=== PATIENT | female | born 1990 | race American Indian/Alaskan Native ===

== ENCOUNTER 2017-09-23 09:03 | Inpatient (IN) | payer OTHER ==
[2017-09-23] MEDS ORDERED: LACTATED RINGERS 1,000 ML IV ONE (13:18)
[2017-09-23] MEDS ORDERED: POLYCILLIN/NS 2 GM/100 ML 2 GM/100 ML BAG IV ONE (13:20)
[2017-09-23] MEDS ORDERED: XYLOCAINE 2% INFILTRATI ONE (13:20)
[2017-09-23] MEDS ORDERED: NARCAN 0.4 MG/1 ML IV PRN (13:20)
[2017-09-23] MEDS ORDERED: BRETHINE IVP PRN (13:20)
[2017-09-23] MEDS ORDERED: BRETHINE SUB-Q PRN (13:20)
[2017-09-23] MEDS ORDERED: MINERAL OIL PO PRN (13:20)
[2017-09-23] MEDS ORDERED: ePHEDrine SULFATE IV PRN ×2 (13:20→17:33)
[2017-09-23] MEDS ORDERED: SUBLIMAZE IV PRN (13:20)
[2017-09-23] MEDS ORDERED: STADOL IV PRN (13:20)
[2017-09-23] MEDS ORDERED: PITOCin/NS 30 UNIT/500ML 30 UNITS/500 ML BAG IV SCH ×2 (13:30→14:00)
[2017-09-23] MEDS ORDERED: PITOCin/NS 20 UNIT/1000ML DRIP 20 UNITS/1,000 ML BAG IV SCH ×2 (14:00→21:23)
--- NOTE | 2017-09-23 14:15 | Ultrasound Report ---
ULTRASOUND BIOPHYSICAL PROFILE: History: Nonreactive stress test, well being Technique: Transabdominal ultrasound with Doppler interrogation. 2 - breathing movements 0 - movements 2 - posture and tone 2 - Qualitative amniotic fluid volume 6 - TOTAL SCORE OF POSSIBLE 8 Heart Rate (bpm) 131
--- NOTE | 2017-09-23 14:19 | Ultrasound Report ---
OB ULTRASOUND History no care, nonreactive stress test, well being. Technique: Transabdominal ultrasound with Doppler interrogation. Gestation: Single Position: Cephalic Amniotic Fluid: Normal SIMONE = 8.9 cm Placenta: Posterior, fundal Placental Grade: 2 Heart Rate: 136 BPM Cervical length: Obscured NEUROANATOMY VISUALIZED: ANATOMY VISUALIZED: Stomach Kidneys Bladder Diaphragm 4 Chamber Heart Heart 3 Vessel Cord SPINE VISUALIZED: Longitudinal Transverse The following are not demonstrated due to maternal body habitus or lie: Neuroanatomy, umbilical cord insertion, cervix BPD: 9.2 cm = 37 w 2 d HC: 33.2 cm = 37 w 6 d AC: 33.3 cm = 37 w 2 d FL: 7.5 cm = 38 w 2 d HC/AC Ratio: 1.0 Cephalic Index: 82.4 Estimated Weight: 3-48 grams Clinical age = 39 w 4 d EDC: 09/26/17 US Gest. Age = 37 w 5 d EDC: 10/09/17 IMPRESSION: Viable, single intrauterine as described.
[2017-09-23] MEDS: LACTATED RINGERS 1,000 ML IV SCH ×3 (14:30→17:20)
[2017-09-23 14:54] LABS: Hematocrit 36.8 % (30.3-42.9); Hemoglobin 11.6 gm/dl (10.1-14.3); Mean Corpuscular HGB Conc 32 % (30-34); Mean Corpuscular Volume 75 fl (79-97); Platelet Count 181 K/mm3 (140-440); Red Blood Count 4.89 M/mm3 (3.65-5.03); Red Cell Distribution Width 14.4 % (13.2-15.2)
[2017-09-23 15:01] LABS: Bilirubin,Urine NEG (Negative); Blood,Urine NEG (Negative); Color,Urine Straw (Yellow); Protein,Urine <15 mg/dL mg/dL (Negative); Urobilinogen,Urine < 2.0 mg/dL (<2.0); WBC,Urine < 1.0 /HPF (0.0-6.0)
[2017-09-23 15:02] LABS: Mean Corpuscular Hemoglobin 24 pg (28-32)
[2017-09-23 15:09] LABS: Amphetamine Screen,Urine PRESUMPTIVE NEGATIVE; Benzodiazepines Screen,Urine PRESUMPTIVE NEGATIVE; Cannabinoid Screen,Urine PRESUMPTIVE NEGATIVE; Cocaine Screen,Urine PRESUMPTIVE NEGATIVE; Methadone Screen,Urine PRESUMPTIVE NEGATIVE; Opiate Screen,Urine PRESUMPTIVE NEGATIVE
[2017-09-23 15:21] LABS: Hepatitis C Virus Antibody Non-Reactive (NonReactive); Rubella IgG Antibody Immune (Immune)
[2017-09-23 15:58] LABS: Basophils % (Manual) 0 % (0.0-1.8); Total Cells Counted 100
[2017-09-23 16:00] LABS: Anisocytosis 2+; Platelet Estimate Consistent w Auto
[2017-09-23] MEDS ORDERED: AMPICILLIN/NS 1 GM/50 ML 1 GM/50 ML BAG IV SCH (17:23)
[2017-09-23] MEDS ORDERED: NARCAN 2 MG/2 ML IV PRN (17:33)
--- NOTE | 2017-09-23 17:34 | Anesthesia Consultation ---
Anesthesia Consult and Med Hx Date of service: 09/23/17 - Airway Anesthetic Teeth Evaluation: Good ROM Head & Neck: Adequate Mental/Hyoid Distance: Adequate Mallampati Class: Class II Intubation Access Assessment: Probably Good - Pre-Operative Health Status ASA Pre-Surgery Classification: ASA2 Proposed Anesthetic Plan: Epidural, Spinal - Pulmonary Hx Asthma: No COPD: No Hx Pneumonia: No - Cardiovascular System Hx Hypertension: No - Central Nervous System Hx Seizures: No Hx Psychiatric Problems: No - Endocrine Hx Renal Disease: No Hx End Stage Renal Disease: No Hx Hypothyroidism: No Hx Hyperthyroidism: No - Hematic Hx Anemia: No Hx Sickle Cell Disease: No - Other Systems Hx Alcohol Use: No
[2017-09-23] MEDS ORDERED: fentaNYL-BUPIV 2 MCG/ML-0.125% 200 MCG/100 ML BAG EPIDURAL SCH (18:00)
--- NOTE | 2017-09-23 18:09 | History and Physical Report ---
History of Present Illness Date of examination: 09/23/17 Date of admission: 09/23/17 09:04 Chief complaint: contractions History of present illness: Pt is a 27 year old primigravida KANE: 09/28/17 at 39w2d who presents with regular painful contractions since 1 am this morning. She denies leakage of fluid or vaginal bleeding. She has had care in [place] that she reports was uncomplicated. She is now comfortable with epidural. Past History Past Medical History: no pertinent history Past Surgical History: no surgical history Family/Genetic History: diabetes, hypertension, stroke, cancer Social history: no significant social history - Obstetrical History Expected Date of Delivery: 09/28/17 Actual Gestation: 39 Week(s) 2 Day(s) : 1 Medications and Allergies Allergies Allergy/AdvReac Type Severity Reaction Status Date / Time ibuprofen Allergy Swelling Verified 09/23/17 09:05 Home Medications Medication Instructions Recorded Confirmed Last Taken Type Ferrous Sulfate 325 mg PO DAILY 09/23/17 09/23/17 09/22/17 09:00 History 1 Vit-Fe Fumar-FA [ 1 tab PO QDAY 09/23/17 09/23/17 09/22/17 09: 00 History Vitamin] 1 Active Meds: Active Medications Butorphanol Tartrate (Stadol) 2 mg IV Q2H PRN PRN Reason: Pain , Severe (7-10) Ephedrine Sulfate (Ephedrine Sulfate) 10 mg IV Q2M PRN PRN Reason: Hypotension Ephedrine Sulfate (Ephedrine Sulfate) 10 mg IV Q2M PRN PRN Reason: Hypotension Fentanyl (Sublimaze) 100 mcg IV Q2H PRN PRN Reason: Labor Pain Ampicillin Sodium (Ampicillin/Ns 1 Gm/50 Ml) 1 gm in 50 mls @ 100 mls/hr IV Q4HR KIMO; Protocol Lactated Ringer's (Lactated Ringers) 1,000 mls @ 125 mls/hr IV DIRECT KIMO Last Admin: 09/23/17 15:54 Dose: 125 mls/hr Oxytocin/Sodium Chloride (Pitocin/Ns 20 Unit/1000ml Drip) 20 units in 1,000 mls @ 125 mls/hr IV DIRECT KIMO Oxytocin/Sodium Chloride (Pitocin/Ns 30 Unit/500ml) 30 units in 500 mls @ 1 mls /hr IV TITR KIMO; Protocol Oxytocin/Sodium Chloride (Pitocin/Ns 30 Unit/500ml) 30 units in 500 mls @ 4 mls /hr IV TITR KIMO; Protocol Last Admin: 09/23/17 15:40 Dose: 4 ml/hr, 4 mls/hr Fentanyl/Bupivacaine/Sodium Chlor (Fentanyl-Bupiv 2 Mcg/Ml-0.125%) 200 mcg in 100 mls @ 12 mls/hr EPIDURAL TITR KIMO; Protocol Mineral Oil (Mineral Oil) 30 ml PO QHS PRN PRN Reason: Constipation Naloxone HCl (Narcan 0.4 Mg/1 Ml) 0.1 mg IV Q2MIN PRN PRN Reason: Res Rate </= 8 or 02 SAT < 92% Naloxone HCl (Narcan 2 Mg/2 Ml) 0.2 mg IV Q5M PRN PRN Reason: Respiratory sedation Terbutaline Sulfate (Brethine) 0.25 mg SUB-Q ONCE PRN PRN Reason: Hyperstimulation/Hypertonicity Terbutaline Sulfate (Brethine) 0.25 mg IVP ONCE PRN PRN Reason: Hyperstimulation/Hypertonicity Review of Systems All systems: negative - Vital Signs Vital signs: Vital Signs Pulse Pulse Ox 80 100 09/23/17 09:23 09/23/17 09:23 Temp Pulse Resp BP Pulse Ox 97.5 F L 80 16 118/71 100 09/23/17 14:13 09/23/17 14:14 09/23/17 14:13 09/23/17 14:14 09/23/17 13:55 - Physical Exam Breasts: Positive: deferred Cardiovascular: Regular rate Lungs: Positive: Clear to auscultation Abdomen: Positive: soft (gravid ) Uterus: Positive: enlarged (gravid ) Extremities: Positive: normal - Obstetrical FHR: category 2 Uterine Contraction Monitor Mode: External Cervical Dilatation: 10 Cervical Effacement Percentage: 100 station: +1 Uterine Contraction Pattern: Regular Uterine Tone Measurement Phase: Resting Uterine Contraction Intensity: Strong/Firm Results Result Diagrams: 09/23/17 13:30 Abnormal lab results 09/23/17 Range/Units 13:30 WBC 12.6 H (4.5-11.0) K/mm3 MCV 75 L (79-97) fl MCH 24 L (28-32) pg Seg Neuts % (Manual) 74.0 H (40.0-70.0) % Lymphocytes % (Manual) 9.0 L (13.4-35.0) % Monocytes % (Manual) 14.0 H (0.0-7.3) % Seg Neutrophils # Man 9.3 H (1.8-7.7) K/mm3 Lymphocytes # (Manual) 1.1 L (1.2-5.4) K/mm3 Monocytes # (Manual) 1.8 H (0.0-0.8) K/mm3 All other labs normal. Assessment and Plan A: IUP at 39w2d Second Stage Labor GBS unknown Unassigned patient P: Admit to labor and delivery. No care labs. Ampicillin for GBS unknown status Routine intrapartum care.
--- NOTE | 2017-09-23 19:39 | Procedure Note ---
OB Delivery Note - Delivery Date of Delivery: 09/23/17 Surgeon: LESLEE PACK Estimated blood loss: other (400 mL) - Vaginal Delivery presentation: vertex Delivery position: OA Intrapartum events: no care, PROM->1hr before delivery, meconium, mult.variable deceleratio Delivery induction: none Delivery augmentation: rupture of membranes, pitocin Delivery monitor: external FHT, external uterine Route of delivery: Delivery placenta: spontaneous Delivery cord: 3 umbilical vessels Episiotomy: none Delivery laceration: 2nd degree, other (bilateral periurethral ) Delivery repair: vicryl Anesthesia: epidural Delivery comments: Pt progressed to complete/complete/+2 and pushed to deliver a viable female over intact perienum under epidural anesthesia via . Head delivered in KAYLEE position, quickly followed by shoulders and body. placed on maternal abdomen and bulb suctioned. Cord clamped and cut and handed to nurse in attendance. Placenta delivered spontaneously (3VC, intact). Vagina and perineum explored. Bilateral periurethral and second degree perineal lacerations repaired in a standard fashion. EBL 400 mL. - A at 1 minute: 8 at 5 minutes: 9 Gender: Female (3264g (7lb 3oz) @ 1910 pm)
[2017-09-23] MEDS ORDERED: DERMOPLAST TP PRN (21:23)
[2017-09-23] MEDS ORDERED: ZOFRAN IV PRN (21:23)
[2017-09-23] MEDS ORDERED: MILK OF MAGNESIA PO PRN (21:23)
[2017-09-23] MEDS ORDERED: TUCKS PAD TP PRN (21:23)
[2017-09-23] MEDS ORDERED: PHENERGAN PO PRN (21:23)
[2017-09-23] MEDS ORDERED: TYLENOL PO PRN (21:23)
[2017-09-23] MEDS ORDERED: BENADRYL PO PRN (21:23)
[2017-09-23] MEDS ORDERED: DULCOLAX PR PRN (21:23)
[2017-09-23] MEDS ORDERED: SODIUM CHLORIDE FLUSH SYRINGE 10 ML IV PRN (21:23)
[2017-09-23] MEDS ORDERED: PHENERGAN PR PRN (21:23)
[2017-09-23] MEDS ORDERED: MOTRIN PO SCH (21:23)
[2017-09-23] MEDS ORDERED: LANSINOH TP PRN ×2 (21:23)
[2017-09-23] MEDS: FEOSOL PO SCH (22:43)
[2017-09-23] MEDS: NORCO 5/325 PO PRN (22:44)
[2017-09-24] MEDS: COLACE PO SCH ×3 (01:05→21:28)
[2017-09-24 07:55] LABS: Hematocrit 30.9 % (30.3-42.9)
--- NOTE | 2017-09-24 08:47 | Progress Note ---
Assessment and Plan - Patient Problems (1) Vaginal delivery Current Visit: Yes Status: Acute Plan to address problem: patient doing well discharge home once is discharged Subjective - Subjective Date of service: 09/24/17 Interval history: Patient without complaints. Pain well controlled Patient reports: appetite normal, voiding normally, pain well controlled : doing well Objective - Vital Signs Latest vital signs: Vital Signs Temp Pulse Resp BP BP Pulse Ox 09/24/17 07:54 98.5 F 72 18 91/47 99 09/24/17 04:10 98.2 F 80 18 109/55 09/23/17 21:05 99.2 F 77 18 121/70 09/23/17 14:14 80 118/71 09/23/17 14:13 97.5 F L 16 09/23/17 13:55 78 100 09/23/17 13:54 78 91 09/23/17 13:50 78 99 09/23/17 13:47 71 85 09/23/17 13:45 78 100 09/23/17 13:40 82 99 09/23/17 13:35 78 100 09/23/17 13:30 79 100 09/23/17 13:25 77 100 09/23/17 13:21 78 115/70 09/23/17 13:20 81 100 09/23/17 09:26 79 113/70 09/23/17 09:24 99.1 F 79 20 100 09/23/17 09:23 80 100 Intake and Output 09/23/17 09/24/17 09/24/17 22:59 06:59 14:59 Intake Total 604.167 240 Output Total 1150 1400 Balance -545.833 -1160 Intake: IV 604.167 Lactated Ringers 1,000 ml 354.167 @ 125 mls/hr IV DIRECT KIMO Rx#:[id number] Left Forearm 250 Oral 240 Output: Urine 1150 1400 Indwelling Catheter 350 Void 800 1400 Other: Total, Intake Amount 240 Total, Output Amount 800 600 Estimated Blood Loss 400 - Exam Uterus: Present: normal - Labs Labs: Abnormal lab results 09/23/17 09/24/17 Range/Units 13:30 07:36 WBC 12.6 H (4.5-11.0) K/mm3 Hgb 10.0 L (10.1-14.3) gm/dl MCV 75 L (79-97) fl MCH 24 L (28-32) pg Seg Neuts % (Manual) 74.0 H (40.0-70.0) % Lymphocytes % (Manual) 9.0 L (13.4-35.0) % Monocytes % (Manual) 14.0 H (0.0-7.3) % Seg Neutrophils # Man 9.3 H (1.8-7.7) K/mm3 Lymphocytes # (Manual) 1.1 L (1.2-5.4) K/mm3 Monocytes # (Manual) 1.8 H (0.0-0.8) K/mm3
--- NOTE | 2017-09-24 08:50 | Discharge Summary ---
Providers - Providers Date of Admission: 09/23/17 09:04 Date of discharge: 09/25/17 Attending physician: LESLEE PACK 09/23/17 21:23 Consult to Telecom Billing Analyst [CONS] Routine Reason For Exam: assistance with , SNS Primary care physician: LESLEE PACK Hospitalization Reason for admission: active labor Delivery: Discharge diagnosis: IUP at term delivered baby: female Hospital course: Patient without care in the [place] presents in active labor. Had a . uncomplicated Condition at discharge: Good Disposition: DC-01 TO HOME OR SELFCARE - Discharge Diagnoses (1) Vaginal delivery Status: Acute Plan - Discharge Medications Prescriptions: HYDROcodone/APAP 5-325 [[place] 5/325] 1 each PO Q6HR PRN #30 tablet PRN Reason: Pain - Provider Discharge Summary Activity: no sex for 6 weeks, no heavy lifting 4 weeks, no strenuous exercise Diet: routine Instructions: routine Additional instructions: [] Smoking cessation referral if applicable(refer to patient education folder for contact #) [] Refer to [facility] [employer] [facility] Booklet Call your doctor immediately for: * Fever > 100.5 * Heavy vaginal bleeding ( >1 pad per hour) * Severe persistent headache * Shortness of breath * Reddened, hot, painful area to leg or breast * followup in 4 weeks [facility] * [address] [facility] * natalie steinberg * [phone] - Follow up plan
[2017-09-24] MEDS: FEOSOL PO SCH ×2 (10:48→21:28)
[2017-09-24] MEDS ORDERED: M-M-R II VACCINE SUB-Q ONE (19:40)
[2017-09-24] MEDS: NORCO 5/325 PO PRN (20:38)
[2017-09-25] MEDS ORDERED: BOOSTRIX IM ONE (06:00)
[2017-09-25] MEDS: NORCO 5/325 PO PRN (10:09)
[2017-09-25] MEDS: COLACE PO SCH (10:09)
[2017-09-25] MEDS: FEOSOL PO SCH (10:09)
[2017-09-25 10:30] VITALS: BP 113/69
== END 2017-09-25 15:45 | disposition home or self-care (01) | DRG 775 ==
LOC: EDBD 09:03 → TRG 09:03 → LD 09:04 → OB 20:57
PROVIDERS: ADMIT Obstetrics & Gynecology; ATTEND Obstetrics & Gynecology
PROC: 10E0XZZ Delivery of Products of Conception, External Approach (ICD-10-PCS; principal; 2017-09-23)
PROC: 0KQM0ZZ Repair Perineum Muscle, Open Approach (ICD-10-PCS; 2017-09-23)
PROC: 3E0234Z Introduction of Serum, Toxoid and Vaccine into Muscle, Percutaneous Approach (ICD-10-PCS; 2017-09-23)
PROC: 3E0R3BZ Introduction of Anesthetic Agent into Spinal Canal, Percutaneous Approach (ICD-10-PCS; 2017-09-23)
PROC: 00HU33Z Insertion of Infusion Device into Spinal Canal, Percutaneous Approach (ICD-10-PCS; 2017-09-23)
DX: O76 Abnormality in fetal heart rate and rhythm complicating labor and delivery (principal); Z3A.39 39 weeks gestation of pregnancy; Z37.0 Single live birth; Z23 Encounter for immunization; O77.0 Labor and delivery complicated by meconium in amniotic fluid; O42.02 Full-term premature rupture of membranes, onset of labor within 24 hours of rupture; O71.82 Other specified trauma to perineum and vulva; O70.1 Second degree perineal laceration during delivery
CPT/HCPCS: 36415; 59025; 76805; 76819; 80307; 81001; 85007; 85014; 85018; 85025; 85660; 86592; 86706; 86762; 86803; 86850; 86900; 86901; 87806; 99211; A6250; G0463; J0290; J2590; J3010; J7120